=== PATIENT | female | born 1955 | race Caucasian/White ===

== ENCOUNTER 2020-07-13 21:53 | Emergency (ER) | payer MEDICARE ==
[2020-07-13 22:09] VITALS: BP 157/89; PULSE 82; RESP 16; TEMP 98.2
[2020-07-13] MEDS ORDERED: LIDOCAINE 1% INJ 10MG/ML (20 ML MDV) SQ ONE (23:31)
[2020-07-13] MEDS ORDERED: WATER FOR IRRIG, STERILE 1,000 ML BTL IRRIGATION ONE (23:31)
[2020-07-13] MEDS ORDERED: AMOXIC-POT CLAV 875MG STARTER PACK 2 TAB BTL PO STA (23:32)
[2020-07-14] MEDS ORDERED: BACITRACIN OINT 1 EACH PACKET TOPICAL ONE (00:17)
[2020-07-14] MEDS ORDERED: traMADol 50 MG STARTER PACK 3 TAB BTL PO STA (00:18)
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
== END 2020-07-14 00:35 | disposition home or self-care (01) ==
LOC: EC 21:53
DX: S51.852A Open bite of left forearm, initial encounter (principal); W50.3XXA Accidental bite by another person, initial encounter
CPT/HCPCS: 99283; 12004; J2001